=== PATIENT | female | born 1930 | race Caucasian/White ===

== ENCOUNTER 2017-08-23 07:24 | Emergency (ER) | payer MEDICARE, OTHER ==
[2017-08-23 08:05] LABS: BASO % 0 % (0-3); EOS # 0.1 x10^3/uL (0.0-0.7); EOS % 1 % (0-3); HEMATOCRIT 26.7 % (36.0-47.0); HEMOGLOBIN 8.7 g/dL (12.0-15.5); LYMPH # 0.3 x10^3/uL (1.0-4.8); LYMPH % 2 % (24-48); MEAN CORPUSCULAR HEMOGLOBIN 32 pg (25-35); MEAN CORPUSCULAR HGB CONC 33 g/dL (31-37); MEAN CORPUSCULAR VOLUME 99 fL (79-100); MONO # 0.4 x10^3/uL (0.0-1.1); MONO % 3 % (0-9); NEUT # 11.1 x10^3uL (1.8-7.7); NEUT % 93 % (31-73); PLATELET COUNT 300 x10^3/uL (140-400); RED BLOOD COUNT 2.69 x10^6/uL (3.50-5.40); RED CELL DISTRIBUTION WIDTH 16.5 % (11.5-14.5); WHITE BLOOD COUNT 11.9 x10^3/uL (4.0-11.0)
[2017-08-23 08:16] LABS: ANION GAP 7 (6-14); BLOOD UREA NITROGEN 15 mg/dL (7-20); BUN/CREATININE RATIO 17 (6-20); CALCIUM 8.5 mg/dL (8.5-10.1); CARBON DIOXIDE 30 mmol/L (21-32); CHLORIDE 98 mmol/L (98-107); CREATININE 0.9 mg/dL (0.6-1.0); GFR 59.4; GLUCOSE 101 mg/dL (70-99); POTASSIUM 4.6 mmol/L (3.5-5.1); SODIUM 135 mmol/L (136-145)
[2017-08-23] MEDS: methylPREDNISolone SOD SUCC PF 125 MG/2 ML VIAL. IV (08:16)
[2017-08-23] MEDS: fentaNYL PF VIAL 100 MCG/2 ML VIAL IV (08:16)
[2017-08-23 08:18] LABS: INR 0.9 (0.8-1.1)
[2017-08-23 08:22] LABS: ALBUMIN 2.8 g/dL (3.4-5.0); ALBUMIN/GLOBULIN RATIO 0.9 (1.0-1.7); ALK PHOS 94 U/L (46-116); ALT (SGPT) 34 U/L (14-59); AST (SGOT) 19 U/L (15-37); MAGNESIUM 1.9 mg/dL (1.8-2.4); TOTAL BILIRUBIN 0.4 mg/dL (0.2-1.0); TOTAL PROTEIN 5.8 g/dL (6.4-8.2)
[2017-08-23 08:23] LABS: TROPONINI < 0.017 ng/mL (0.000-0.055)
[2017-08-23 08:23] LABS: ADD MAN DIFF? YES
[2017-08-23 08:24] LABS: LACTIC ACID 1.1 mmol/L (0.4-2.0)
[2017-08-23 08:28] LABS: NT-PRO BNP 697 pg/mL (0-449)
[2017-08-23] MEDS: IPRATRPIUM/ALBUTEROL 0.5/2.5MG 3 ML NEBU. NEB (08:42)
[2017-08-23 10:48] LABS: % BANDS 11 % (0-9); % EOS 1 % (0-5); % LYMPHS 3 % (24-48); % SEGS 85 % (35-66); PLT ESTIMATE ADEQUATE (ADEQUATE)
[2017-08-23 10:49] LABS: ANISOCYTOSIS SLIGHT; SCHISTOCYTES OCC; TOXIC GRANULATION PRESENT
== END 2017-08-23 10:27 | disposition home or self-care (01) ==
LOC: ER 07:24
DX: R05 Cough (principal); R09.81 Nasal congestion; R06.02 Shortness of breath; J44.9 Chronic obstructive pulmonary disease, unspecified; M19.90 Unspecified osteoarthritis, unspecified site; E78.5 Hyperlipidemia, unspecified; E03.9 Hypothyroidism, unspecified; I10 Essential (primary) hypertension; Z95.5 Presence of coronary angioplasty implant and graft; Z99.81 Dependence on supplemental oxygen; I25.10 Atherosclerotic heart disease of native coronary artery without angina pectoris; F17.200 Nicotine dependence, unspecified, uncomplicated
CPT/HCPCS: 36415; 71045; 80053; 83605; 83735; 83880; 84484; 85007; 85025; 85610; 87040; 93005; 93923; 94640; 96374; 96375; 99285-25; J2930; J3010; J7620

== ENCOUNTER → 2017-09-02 | Outpatient (CLI) | payer MEDICARE, OTHER ==
[2017-09-02] MEDS: IOHEXOL 300 MG/ML 100ML VIAL. IV (14:15)
== END | disposition home or self-care (01) ==
LOC: CT 14:39
DX: I70.0 Atherosclerosis of aorta (principal); I11.0 Hypertensive heart disease with heart failure; I50.9 Heart failure, unspecified; E78.5 Hyperlipidemia, unspecified; E03.9 Hypothyroidism, unspecified; Z87.891 Personal history of nicotine dependence
CPT/HCPCS: 75635; Q9967

== ENCOUNTER 2017-10-15 15:28 | Emergency (ER) | payer MEDICARE, OTHER ==
[2017-10-15 16:49] LABS: BILIRUBIN,URINE NEGATIVE (NEG); CLARITY,URINE CLOUDY; COLOR,URINE YELLOW; GLUCOSE,URINE NEGATIVE (NEG); NITRITE,URINE POSITIVE (NEG); PH,URINE 5.5; PROTEIN,URINE NEGATIVE (NEG-TRACE); UROBILINOGEN,URINE 0.2 mg/dL (0.2 mg/dL)
[2017-10-15 17:04] LABS: ADD MAN DIFF? NO
[2017-10-15 17:07] LABS: BASO # 0.1 x10^3/uL (0.0-0.2); BASO % 1 % (0-3); EOS # 0.6 x10^3/uL (0.0-0.7); EOS % 8 % (0-3); HEMOGLOBIN 9.1 g/dL (12.0-15.5); LYMPH # 1.8 x10^3/uL (1.0-4.8); LYMPH % 23 % (24-48); MEAN CORPUSCULAR HEMOGLOBIN 32 pg (25-35); MEAN CORPUSCULAR HGB CONC 34 g/dL (31-37); MEAN CORPUSCULAR VOLUME 95 fL (79-100); MONO # 0.9 x10^3/uL (0.0-1.1); MONO % 11 % (0-9); NEUT # 4.5 x10^3uL (1.8-7.7); NEUT % 57 % (31-73); PLATELET COUNT 268 x10^3/uL (140-400); RED BLOOD COUNT 2.85 x10^6/uL (3.50-5.40); RED CELL DISTRIBUTION WIDTH 18.1 % (11.5-14.5); WHITE BLOOD COUNT 7.8 x10^3/uL (4.0-11.0)
[2017-10-15 17:11] LABS: BACTERIA,URINE MODERATE /HPF (0-FEW); SQUAMOUS EPITHELIAL CELL,UR OCC /LPF; WBC,URINE TNTC /HPF (0-4)
[2017-10-15 17:35] LABS: LACTIC ACID 1.1 mmol/L (0.4-2.0); TROPONINI < 0.017 ng/mL (0.000-0.055)
[2017-10-15 17:43] LABS: ALBUMIN 2.8 g/dL (3.4-5.0); ALBUMIN/GLOBULIN RATIO 0.7 (1.0-1.7); ALK PHOS 89 U/L (46-116); ALT (SGPT) 18 U/L (14-59); ANION GAP 2 (6-14); AST (SGOT) 20 U/L (15-37); BLOOD UREA NITROGEN 19 mg/dL (7-20); BUN/CREATININE RATIO 21 (6-20); CALCIUM 8.5 mg/dL (8.5-10.1); CARBON DIOXIDE 28 mmol/L (21-32); CHLORIDE 104 mmol/L (98-107); CREATININE 0.9 mg/dL (0.6-1.0); GFR 59.4; LIPASE 186 U/L (73-393); POTASSIUM 4.5 mmol/L (3.5-5.1); SODIUM 134 mmol/L (136-145); TOTAL BILIRUBIN 0.2 mg/dL (0.2-1.0); TOTAL PROTEIN 6.8 g/dL (6.4-8.2)
[2017-10-15] MEDS ORDERED: CONTRAST GIVEN. MC (17:45)
[2017-10-15] MEDS: IOHEXOL 300 MG/ML 100ML VIAL. IV (17:45)
[2017-10-15 17:47] LABS: GLUCOSE 105 mg/dL (70-99)
[2017-10-15] MEDS: CIPROFLOXACIN 400MG PREMIX 200 ML IV (19:04)
== END 2017-10-15 20:10 | disposition home or self-care (01) ==
LOC: ER 15:28
DX: N39.0 Urinary tract infection, site not specified (principal); R22.2 Localized swelling, mass and lump, trunk; E03.9 Hypothyroidism, unspecified; E78.5 Hyperlipidemia, unspecified; I25.10 Atherosclerotic heart disease of native coronary artery without angina pectoris; J44.9 Chronic obstructive pulmonary disease, unspecified; I10 Essential (primary) hypertension; M19.90 Unspecified osteoarthritis, unspecified site; Z95.5 Presence of coronary angioplasty implant and graft; Z87.891 Personal history of nicotine dependence; Z90.49 Acquired absence of other specified parts of digestive tract; Z90.710 Acquired absence of both cervix and uterus
CPT/HCPCS: 36415; 74177; 80053; 81001; 83605; 83690; 84484; 85025; 87086; 87186; 93005; 93926; 96365; 99285-25; J0744; Q9967

== ENCOUNTER → 2017-11-04 | Outpatient (CLI) | payer MEDICARE, OTHER ==
[~2017-11-04] MED LIST: CONTRAST GIVEN. MC
[2017-11-04] MEDS: IOHEXOL 300 MG/ML 100ML VIAL. IV (08:38)
== END | disposition home or self-care (01) ==
LOC: CT 07:45
DX: I70.221 Atherosclerosis of native arteries of extremities with rest pain, right leg (principal); E55.9 Vitamin D deficiency, unspecified; I11.0 Hypertensive heart disease with heart failure; I50.9 Heart failure, unspecified; E78.5 Hyperlipidemia, unspecified; E03.9 Hypothyroidism, unspecified; J44.9 Chronic obstructive pulmonary disease, unspecified
CPT/HCPCS: 75635; Q9967

== ENCOUNTER 2017-12-24 05:59 | Inpatient (IN) | payer MEDICARE, OTHER ==
[~2017-12-24 05:59] MED LIST changes: -CONTRAST GIVEN. MC; +LIDOCAINE 1% PF 30 ML VIAL.; +SURGICEL FIBRILLAR 1X2 EACH.
[2017-12-24] MEDS: IV RINGERS,LACTATED 1000ML 1,000 ML IV (07:00)
[2017-12-24] MEDS ORDERED: ONDANSETRON PF 4 MG/2 ML VIAL. IV (07:00)
[2017-12-24] MEDS ORDERED: PROCHLORPERAZINE 10 MG/2 ML VIAL. IV (07:00)
[2017-12-24] MEDS ORDERED: fentaNYL PF VIAL 100 MCG/2 ML VIAL IV (07:00)
[2017-12-24] MEDS ORDERED: LIDOCAINE 1% PF 2 ML VIAL. ID (07:00)
[2017-12-24] MEDS ORDERED: ETOMIDATE 20 MG/10 ML VIAL. IV (07:01)
[2017-12-24] MEDS ORDERED: LIDOCAINE 2% PF Vial for OR 5 ML VIAL. (07:01)
[2017-12-24] MEDS ORDERED: ONDANSETRON PF 4 MG/2 ML VIAL. (07:01)
[2017-12-24] MEDS ORDERED: PHENYLEPHRINE in 0.9% NACL PF 1 MG/10 ML SYRINGE. IV (07:01)
[2017-12-24] MEDS ORDERED: DEXAMETHASONE SOD PHOS 20 MG/5 ML VIAL. (07:01)
[2017-12-24] MEDS ORDERED: fentaNYL PF VIAL 100 MCG/2 ML VIAL (07:01)
[2017-12-24 07:06] LABS: ADD MAN DIFF? NO
[2017-12-24 07:13] LABS: BASO # 0.1 x10^3/uL (0.0-0.2); BASO % 1 % (0-3); EOS # 0.4 x10^3/uL (0.0-0.7); EOS % 3 % (0-3); HEMATOCRIT 28.9 % (36.0-47.0); HEMOGLOBIN 9.8 g/dL (12.0-15.5); LYMPH # 1.5 x10^3/uL (1.0-4.8); LYMPH % 12 % (24-48); MEAN CORPUSCULAR HEMOGLOBIN 32 pg (25-35); MEAN CORPUSCULAR HGB CONC 34 g/dL (31-37); MEAN CORPUSCULAR VOLUME 95 fL (79-100); MONO # 0.9 x10^3/uL (0.0-1.1); MONO % 8 % (0-9); NEUT # 9.3 x10^3uL (1.8-7.7); NEUT % 77 % (31-73); PLATELET COUNT 230 x10^3/uL (140-400); RED BLOOD COUNT 3.06 x10^6/uL (3.50-5.40); RED CELL DISTRIBUTION WIDTH 15.7 % (11.5-14.5); WHITE BLOOD COUNT 12.1 x10^3/uL (4.0-11.0)
[2017-12-24 07:15] LABS: ANION GAP 8 (6-14); BLOOD UREA NITROGEN 22 mg/dL (7-20); CARBON DIOXIDE 24 mmol/L (21-32); CHLORIDE 106 mmol/L (98-107); CREATININE 0.9 mg/dL (0.6-1.0); GFR 59.4; GLUCOSE 94 mg/dL (70-99); POTASSIUM 5.1 mmol/L (3.5-5.1); SODIUM 138 mmol/L (136-145)
[2017-12-24] MEDS ORDERED: SUCCINYLCHOLINE 200 MG/10 ML VIAL. (07:15)
[2017-12-24 07:24] LABS: PARTIAL THROMBOPLASTIN TIME 26 SEC (24-38); PROTHROMBIN TIME PATIENT 12.5 SEC (11.7-14.0)
[2017-12-24] MEDS ORDERED: ePHEDrine PF IN SALINE 50 MG/5 ML DISP.SYRIN IV (07:59)
[2017-12-24] MEDS ORDERED: ceFAZolin 2GM PREMIX 2 GM/50 ML BAG IV (08:00)
[2017-12-24] MEDS ORDERED: ESMOLOL 100 MG/10 ML VIAL. IV (08:24)
[2017-12-24] MEDS: fentaNYL PF VIAL 100 MCG/2 ML VIAL IV ×4 (09:02→09:22)
[2017-12-24] MEDS ORDERED: MAG HYDROX/ALUMINUM HYD/SIMETH 30 ML ORAL.SUSP PO (09:15)
[2017-12-24] MEDS ORDERED: NALOXONE 0.4 MG/ML VIAL. IV (09:15)
[2017-12-24] MEDS ORDERED: CALCIUM CARBONATE 500 MG TAB.CHEW PO (09:15)
[2017-12-24] MEDS: MORPHINE SULFATE 2 MG/ML DISP.SYRIN. IV ×3 (09:38→10:56)
[2017-12-24] MEDS ORDERED: NITROGLYCERIN SUBLINGUAL 0.4 MG BOTTLE OF 25. SL (11:45)
[2017-12-24] MEDS ORDERED: IPRATRPIUM/ALBUTEROL 0.5/2.5MG 3 ML NEBU. NEB (11:45)
[2017-12-24] MEDS: IPRATRPIUM/ALBUTEROL 0.5/2.5MG 3 ML NEBU. NEB ×3 (11:50→20:00)
[2017-12-24] MEDS ORDERED: ALBUTEROL SULFATE 2.5 MG/3 ML NEBU. NEB (12:00)
[2017-12-24] MEDS: DOCUSATE SODIUM 100 MG CAPSULE. PO (17:15)
[2017-12-24] MEDS: oxyCODONE/APAP 5/325 1 TAB TABLET PO (17:17)
[2017-12-24] MEDS: BUDESONIDE 0.5 MG/2 ML NEBU. NEB (20:00)
[2017-12-24] MEDS: ALPRAZolam 0.25 MG TABLET PO (20:07)
[2017-12-24] MEDS: MONTELUKAST SODIUM 10 MG TABLET. PO (20:07)
[2017-12-24] MEDS: ATORVASTATIN CALCIUM 20 MG TABLET PO (20:07)
[2017-12-24] MEDS: HYDROcodone/APAP 5/325MG 1 TAB TABLET PO (21:11)
[2017-12-25] MEDS: oxyCODONE/APAP 5/325 1 TAB TABLET PO ×3 (01:16→17:49)
[2017-12-25] MEDS: LEVOTHYROXINE 88 MCG TABLET PO (06:06)
[2017-12-25] MEDS: HYDROcodone/APAP 5/325MG 1 TAB TABLET PO (06:07)
[2017-12-25 07:32] LABS: ADD MAN DIFF? NO
[2017-12-25 07:35] LABS: BASO # 0.1 x10^3/uL (0.0-0.2); BASO % 1 % (0-3); EOS # 0.3 x10^3/uL (0.0-0.7); EOS % 4 % (0-3); HEMATOCRIT 25.6 % (36.0-47.0); HEMOGLOBIN 8.8 g/dL (12.0-15.5); LYMPH # 1.3 x10^3/uL (1.0-4.8); LYMPH % 17 % (24-48); MEAN CORPUSCULAR HEMOGLOBIN 33 pg (25-35); MEAN CORPUSCULAR HGB CONC 34 g/dL (31-37); MEAN CORPUSCULAR VOLUME 95 fL (79-100); MONO # 0.5 x10^3/uL (0.0-1.1); MONO % 6 % (0-9); NEUT # 5.8 x10^3uL (1.8-7.7); NEUT % 72 % (31-73); PLATELET COUNT 207 x10^3/uL (140-400); RED CELL DISTRIBUTION WIDTH 15.6 % (11.5-14.5)
[2017-12-25 07:46] LABS: ANION GAP 4 (6-14); BLOOD UREA NITROGEN 15 mg/dL (7-20); CALCIUM 8.8 mg/dL (8.5-10.1); CARBON DIOXIDE 29 mmol/L (21-32); CHLORIDE 105 mmol/L (98-107); CREATININE 0.9 mg/dL (0.6-1.0); GFR 59.4; GLUCOSE 94 mg/dL (70-99); MAGNESIUM 1.9 mg/dL (1.8-2.4); PHOSPHORUS 4.2 mg/dL (2.6-4.7); SODIUM 138 mmol/L (136-145)
[2017-12-25] MEDS: IPRATRPIUM/ALBUTEROL 0.5/2.5MG 3 ML NEBU. NEB ×4 (07:57→20:06)
[2017-12-25] MEDS: BUDESONIDE 0.5 MG/2 ML NEBU. NEB ×2 (07:57→20:06)
[2017-12-25] MEDS ORDERED: CLOPIDOGREL BISULFATE 75 MG TABLET PO (08:00)
[2017-12-25] MEDS: DOCUSATE SODIUM 100 MG CAPSULE. PO ×2 (09:00→20:39)
[2017-12-25] MEDS ORDERED: ASPIRIN 325 MG TABLET PO (09:00)
[2017-12-25] MEDS: amLODIPine BESYLATE 5 MG TABLET PO (09:00)
[2017-12-25] MEDS: FOLIC ACID 1 MG TABLET. PO (09:05)
[2017-12-25] MEDS: PANTOPRAZOLE 40 MG TABLET.DR. PO (09:05)
[2017-12-25] MEDS: ASPIRIN ENTERIC COATED 325 MG TABLET.DR. PO (09:05)
[2017-12-25] MEDS: CLOPIDOGREL BISULFATE 75 MG TABLET PO (09:05)
[2017-12-25] MEDS: SERTRALINE 25 MG TABLET. PO (09:06)
[2017-12-25] MEDS: ALPRAZolam 0.25 MG TABLET PO ×2 (09:06→20:39)
[2017-12-25] MEDS: LISINOPRIL 5 MG TABLET. PO (09:07)
[2017-12-25] MEDS: FUROSEMIDE 40 MG TABLET. PO (12:13)
[2017-12-25] MEDS: MORPHINE SULFATE 2 MG/ML DISP.SYRIN. IV (12:13)
[2017-12-25] MEDS: POTASSIUM CHLORIDE 20 MEQ TABLET.ER. PO (12:14)
[2017-12-25] MEDS ORDERED: FUROSEMIDE 20 MG TABLET PO (16:00)
[2017-12-25] MEDS: ATORVASTATIN CALCIUM 20 MG TABLET PO (20:39)
[2017-12-25] MEDS: MONTELUKAST SODIUM 10 MG TABLET. PO (20:40)
[2017-12-26] MEDS: LEVOTHYROXINE 88 MCG TABLET PO (06:28)
[2017-12-26] MEDS: IPRATRPIUM/ALBUTEROL 0.5/2.5MG 3 ML NEBU. NEB ×4 (07:20→21:16)
[2017-12-26] MEDS: BUDESONIDE 0.5 MG/2 ML NEBU. NEB ×2 (07:20→21:14)
[2017-12-26] MEDS: DOCUSATE SODIUM 100 MG CAPSULE. PO ×2 (09:00→20:44)
[2017-12-26] MEDS: MORPHINE SULFATE 2 MG/ML DISP.SYRIN. IV (09:09)
[2017-12-26] MEDS: ASPIRIN ENTERIC COATED 325 MG TABLET.DR. PO (09:49)
[2017-12-26] MEDS: LISINOPRIL 5 MG TABLET. PO (09:49)
[2017-12-26] MEDS: PANTOPRAZOLE 40 MG TABLET.DR. PO (09:49)
[2017-12-26] MEDS: FOLIC ACID 1 MG TABLET. PO (09:49)
[2017-12-26] MEDS: FUROSEMIDE 40 MG TABLET. PO (09:50)
[2017-12-26] MEDS: CLOPIDOGREL BISULFATE 75 MG TABLET PO (09:50)
[2017-12-26] MEDS: amLODIPine BESYLATE 5 MG TABLET PO (09:50)
[2017-12-26] MEDS: SERTRALINE 25 MG TABLET. PO (09:51)
[2017-12-26] MEDS: oxyCODONE/APAP 5/325 1 TAB TABLET PO ×3 (09:51→20:44)
[2017-12-26] MEDS: POTASSIUM CHLORIDE 20 MEQ TABLET.ER. PO (09:52)
[2017-12-26 13:34] LABS: ADD MAN DIFF? NO
[2017-12-26 13:36] LABS: BASO % 1 % (0-3); EOS # 0.6 x10^3/uL (0.0-0.7); EOS % 7 % (0-3); HEMATOCRIT 27.2 % (36.0-47.0); HEMOGLOBIN 9.2 g/dL (12.0-15.5); LYMPH # 1.3 x10^3/uL (1.0-4.8); LYMPH % 16 % (24-48); MEAN CORPUSCULAR HEMOGLOBIN 32 pg (25-35); MEAN CORPUSCULAR HGB CONC 34 g/dL (31-37); MEAN CORPUSCULAR VOLUME 94 fL (79-100); MONO # 0.5 x10^3/uL (0.0-1.1); MONO % 6 % (0-9); NEUT % 71 % (31-73); PLATELET COUNT 240 x10^3/uL (140-400); RED BLOOD COUNT 2.91 x10^6/uL (3.50-5.40); RED CELL DISTRIBUTION WIDTH 15.5 % (11.5-14.5); WHITE BLOOD COUNT 8.4 x10^3/uL (4.0-11.0)
[2017-12-26 13:50] LABS: ANION GAP 5 (6-14); BLOOD UREA NITROGEN 16 mg/dL (7-20); CALCIUM 8.8 mg/dL (8.5-10.1); CARBON DIOXIDE 30 mmol/L (21-32); CHLORIDE 103 mmol/L (98-107); CREATININE 0.9 mg/dL (0.6-1.0); GFR 59.4; GLUCOSE 112 mg/dL (70-99); POTASSIUM 4.2 mmol/L (3.5-5.1); SODIUM 138 mmol/L (136-145)
[2017-12-26] MEDS: ATORVASTATIN CALCIUM 20 MG TABLET PO (20:44)
[2017-12-26] MEDS: MONTELUKAST SODIUM 10 MG TABLET. PO (20:44)
[2017-12-26] MEDS: ALPRAZolam 0.25 MG TABLET PO (20:44)
[2017-12-27] MEDS: LEVOTHYROXINE 88 MCG TABLET PO (06:17)
[2017-12-27] MEDS: IPRATRPIUM/ALBUTEROL 0.5/2.5MG 3 ML NEBU. NEB ×2 (07:17→11:39)
[2017-12-27] MEDS: BUDESONIDE 0.5 MG/2 ML NEBU. NEB (07:17)
[2017-12-27] MEDS: PANTOPRAZOLE 40 MG TABLET.DR. PO (07:25)
[2017-12-27] MEDS: FUROSEMIDE 40 MG TABLET. PO (08:59)
[2017-12-27] MEDS: SERTRALINE 25 MG TABLET. PO (08:59)
[2017-12-27] MEDS: LISINOPRIL 5 MG TABLET. PO (08:59)
[2017-12-27] MEDS: ALPRAZolam 0.25 MG TABLET PO (08:59)
[2017-12-27] MEDS: FOLIC ACID 1 MG TABLET. PO (08:59)
[2017-12-27] MEDS: POTASSIUM CHLORIDE 20 MEQ TABLET.ER. PO (09:00)
[2017-12-27] MEDS: CLOPIDOGREL BISULFATE 75 MG TABLET PO (09:00)
[2017-12-27] MEDS: amLODIPine BESYLATE 5 MG TABLET PO (09:00)
[2017-12-27] MEDS: ASPIRIN ENTERIC COATED 325 MG TABLET.DR. PO (09:00)
[2017-12-27] MEDS: DOCUSATE SODIUM 100 MG CAPSULE. PO (09:00)
[2017-12-27] MEDS: oxyCODONE/APAP 5/325 1 TAB TABLET PO (09:01)
[2017-12-27] MEDS: HYDROcodone/APAP 5/325MG 1 TAB TABLET PO (12:54)
== END 2017-12-27 13:39 | disposition home health service (06) | DRG 901 ==
LOC: SURG 05:59 → 2 NORTH 10:22
PROC: 0JBL0ZZ Excision of Right Upper Leg Subcutaneous Tissue and Fascia, Open Approach (ICD-10-PCS; principal; 2017-12-24 07:30)
DX: L76.34 Postprocedural seroma of skin and subcutaneous tissue following other procedure (principal); I50.33 Acute on chronic diastolic (congestive) heart failure; E43 Unspecified severe protein-calorie malnutrition; J96.11 Chronic respiratory failure with hypoxia; I11.0 Hypertensive heart disease with heart failure; K21.9 Gastro-esophageal reflux disease without esophagitis; J44.9 Chronic obstructive pulmonary disease, unspecified; F41.9 Anxiety disorder, unspecified; M19.90 Unspecified osteoarthritis, unspecified site; I25.10 Atherosclerotic heart disease of native coronary artery without angina pectoris; E03.9 Hypothyroidism, unspecified; E87.6 Hypokalemia; I70.201 Unspecified atherosclerosis of native arteries of extremities, right leg; Z90.710 Acquired absence of both cervix and uterus; Z98.49 Cataract extraction status, unspecified eye; Z80.9 Family history of malignant neoplasm, unspecified; Z85.038 Personal history of other malignant neoplasm of large intestine; Z95.5 Presence of coronary angioplasty implant and graft; Z68.22 Body mass index [BMI] 22.0-22.9, adult
CPT/HCPCS: 36415; 80048; 83735; 84100; 85025; 85610; 85730; 87071; 87075; 88304; 94640; 94760; 97116-GP; 97161-GP; 97166-GO; 97530-GO; 97535-GO; A7015; J0330; J0690; J1100; J2001; J2270; J2370; J2405; J3010; J3490; J7040; J7120; J7620; J7626

== ENCOUNTER → 2018-01-15 | Outpatient (CLI) | payer MEDICARE, OTHER ==
[2017-12-27 11:15] VITALS: BP 108/41
[~2018-01-15] MED LIST changes: +ACET500L17 PO; +ALBU0.635 IH; +ALBU2.5V5 NEB; +ALPR0.25 PO; +AMLO5TAB7 PO; +AMOX1TAB11 PO; +ASPI325T8 PO; +ATOR10TA60 PO; +BENZ-8 PO; +CALC-79 PO; +CALC500T30 PO; +CIPR500T94 PO; +CLOP75TA PO; +DOCU100C28 PO; +ENSURE; +FOLI1TAB16 PO; +FURO-69 PO; +HYDR-2758 PO; +HYDR1TAB20 PO; +LACT1CAP19 PO; +LEVO500T8 PO; +LEVO75TA5 PO; +LEVO88TA4 PO; -LIDOCAINE 1% PF 30 ML VIAL.; +LISI-338 PO; +METH2.5T PO; +MONT10TA9 PO; +MULT-245 PO; +MULT1TAB45 PO; +NAPR-634 PO; +NAPR220C4 PO; +NITR0.4T SL; +PRED-220 PO; +PRED20TA PO; +Pantoprazole PO; +SERT25TA PO; +SERT25TA4 PO; -SURGICEL FIBRILLAR 1X2 EACH.
== END | disposition home or self-care (01) ==
LOC: PMGWOUND 08:52
PROVIDERS: ATTEND Preventive Medicine Undersea and Hyperbaric Medicine
DX: T81.31XA Disruption of external operation (surgical) wound, not elsewhere classified, initial encounter (principal); I11.0 Hypertensive heart disease with heart failure; I50.33 Acute on chronic diastolic (congestive) heart failure; K21.9 Gastro-esophageal reflux disease without esophagitis; F41.9 Anxiety disorder, unspecified; J44.9 Chronic obstructive pulmonary disease, unspecified; E03.9 Hypothyroidism, unspecified; I25.10 Atherosclerotic heart disease of native coronary artery without angina pectoris; Z90.710 Acquired absence of both cervix and uterus; Z95.5 Presence of coronary angioplasty implant and graft; Z85.828 Personal history of other malignant neoplasm of skin; Z87.891 Personal history of nicotine dependence; Y83.8 Other surgical procedures as the cause of abnormal reaction of the patient, or of later complication, without mention of misadventure at the time of the procedure; Y92.89 Other specified places as the place of occurrence of the external cause
CPT/HCPCS: 97605

== ENCOUNTER → 2018-02-07 | Outpatient (CLI) | payer MEDICARE, OTHER ==
[2017-12-27 11:15] VITALS: BP 108/41
== END | disposition home or self-care (01) ==
LOC: PMGWOUND 10:20
PROVIDERS: ATTEND Preventive Medicine Undersea and Hyperbaric Medicine
DX: T81.89XD Other complications of procedures, not elsewhere classified, subsequent encounter (principal); I11.0 Hypertensive heart disease with heart failure; I50.33 Acute on chronic diastolic (congestive) heart failure; J44.9 Chronic obstructive pulmonary disease, unspecified; E03.9 Hypothyroidism, unspecified; F41.9 Anxiety disorder, unspecified; I25.10 Atherosclerotic heart disease of native coronary artery without angina pectoris; K21.9 Gastro-esophageal reflux disease without esophagitis; M19.90 Unspecified osteoarthritis, unspecified site; E66.9 Obesity, unspecified; Z68.1 Body mass index [BMI] 19.9 or less, adult; Z90.710 Acquired absence of both cervix and uterus; Z87.891 Personal history of nicotine dependence; Z85.038 Personal history of other malignant neoplasm of large intestine; Z85.828 Personal history of other malignant neoplasm of skin; Y83.8 Other surgical procedures as the cause of abnormal reaction of the patient, or of later complication, without mention of misadventure at the time of the procedure
CPT/HCPCS: 97597

== ENCOUNTER → 2018-02-14 | Outpatient (CLI) | payer MEDICARE, OTHER ==
[2017-12-27 11:15] VITALS: BP 108/41
== END | disposition home or self-care (01) ==
LOC: PMGWOUND 09:52
PROVIDERS: ATTEND Preventive Medicine Undersea and Hyperbaric Medicine
DX: T81.89XD Other complications of procedures, not elsewhere classified, subsequent encounter (principal); I11.0 Hypertensive heart disease with heart failure; I50.33 Acute on chronic diastolic (congestive) heart failure; J44.9 Chronic obstructive pulmonary disease, unspecified; F41.9 Anxiety disorder, unspecified; E03.9 Hypothyroidism, unspecified; I25.10 Atherosclerotic heart disease of native coronary artery without angina pectoris; K21.9 Gastro-esophageal reflux disease without esophagitis; M19.90 Unspecified osteoarthritis, unspecified site; E66.9 Obesity, unspecified; Z68.1 Body mass index [BMI] 19.9 or less, adult; Z90.710 Acquired absence of both cervix and uterus; Z87.891 Personal history of nicotine dependence; Z85.038 Personal history of other malignant neoplasm of large intestine; Z85.828 Personal history of other malignant neoplasm of skin; Y83.8 Other surgical procedures as the cause of abnormal reaction of the patient, or of later complication, without mention of misadventure at the time of the procedure
CPT/HCPCS: 17250

== ENCOUNTER → 2018-02-21 | Outpatient (CLI) | payer MEDICARE, OTHER ==
[2017-12-27 11:15] VITALS: BP 108/41
== END | disposition home or self-care (01) ==
LOC: PMGWOUND 10:31
PROVIDERS: ATTEND Preventive Medicine Undersea and Hyperbaric Medicine
DX: T81.89XD Other complications of procedures, not elsewhere classified, subsequent encounter (principal); I11.0 Hypertensive heart disease with heart failure; I50.33 Acute on chronic diastolic (congestive) heart failure; J44.9 Chronic obstructive pulmonary disease, unspecified; F41.9 Anxiety disorder, unspecified; E03.9 Hypothyroidism, unspecified; I25.10 Atherosclerotic heart disease of native coronary artery without angina pectoris; K21.9 Gastro-esophageal reflux disease without esophagitis; M19.90 Unspecified osteoarthritis, unspecified site; E66.9 Obesity, unspecified; Z68.1 Body mass index [BMI] 19.9 or less, adult; Z90.710 Acquired absence of both cervix and uterus; Z95.5 Presence of coronary angioplasty implant and graft; Z87.891 Personal history of nicotine dependence; Z85.038 Personal history of other malignant neoplasm of large intestine; Z85.828 Personal history of other malignant neoplasm of skin; Y83.8 Other surgical procedures as the cause of abnormal reaction of the patient, or of later complication, without mention of misadventure at the time of the procedure
CPT/HCPCS: 99214; G0463

== ENCOUNTER → 2018-02-27 | Outpatient (CLI) | payer MEDICARE, OTHER ==
[2017-12-27 11:15] VITALS: BP 108/41
--- NOTE | 2018-03-03 08:38 | RAD ---
MR#: [id number] Date of Study: 02/27/2018 Ordering Physician: KEN WILKS, Referring Physician: KEN WILKS Tech: Clare Nogueira RDMS RVT APPROVED REPORT Patient Location : OUT-PATIENT Indications Bilateral Leg Edema Findings Grayscale images the bilateral saphenofemoral junctions, proximal greater saphenous veins and lesser saphenous veins does not reveal any obvious evidence of thrombus or reflux. Critical Notification Critical Value: No <Conclusion> Negative for reflux in the bilateral greater and lesser saphenous veins. Signed by : Frank Corona, Electronically Approved : 03/03/2018 08:38:02
== END | disposition home or self-care (01) ==
LOC: US 12:43
PROVIDERS: ATTEND Internal Medicine Cardiovascular Disease
DX: R60.0 Localized edema (principal)
CPT/HCPCS: 93970

== ENCOUNTER → 2018-03-07 | Outpatient (CLI) | payer MEDICARE, OTHER ==
[2017-12-27 11:15] VITALS: BP 108/41
== END | disposition home or self-care (01) ==
LOC: PMGWOUND 10:29
PROVIDERS: ATTEND Preventive Medicine Undersea and Hyperbaric Medicine
DX: T81.89XD Other complications of procedures, not elsewhere classified, subsequent encounter (principal); I11.0 Hypertensive heart disease with heart failure; I50.33 Acute on chronic diastolic (congestive) heart failure; F41.9 Anxiety disorder, unspecified; J44.9 Chronic obstructive pulmonary disease, unspecified; E03.9 Hypothyroidism, unspecified; M19.90 Unspecified osteoarthritis, unspecified site; K21.9 Gastro-esophageal reflux disease without esophagitis; I25.10 Atherosclerotic heart disease of native coronary artery without angina pectoris; E66.9 Obesity, unspecified; Z68.1 Body mass index [BMI] 19.9 or less, adult; Z85.828 Personal history of other malignant neoplasm of skin; Z85.038 Personal history of other malignant neoplasm of large intestine; Z87.891 Personal history of nicotine dependence; Z90.710 Acquired absence of both cervix and uterus; Y83.8 Other surgical procedures as the cause of abnormal reaction of the patient, or of later complication, without mention of misadventure at the time of the procedure
CPT/HCPCS: 99213

== ENCOUNTER 2018-05-06 12:29 | Observation (INO) | payer MEDICARE, OTHER ==
[~2018-05-06] VITALS: Ht 157.5 cm; Wt 49.6 kg
[~2018-05-06 12:29] MED LIST changes: -HYDR-2758 PO; +HYDR-2761 PO
--- NOTE | 2018-05-06 13:04 | PHYS DOC ---
Past Medical History Past Medical History: Anxiety, Arthritis, Bronchitis, CAD, Cancer, COPD, Depression, Hypertension, Hypothyroid, UTI, Other Additional Past Medical Histor: osteoarthritis, hypoxemia, vit D deficiency, hyperlipidemia, emphysema Past Surgical History: Cancer Surgery, Cholecystectomy, Hysterectomy, Other Additional Past Surgical Histo: bladder tuck, hernia, coronary stents, pvd surgery, colon stents Alcohol Use: None Drug Use: None Adult General Chief Complaint Chief Complaint: OTHER COMPLAINTS HPI HPI Patient is a 87 year old female who presents with tachycardia. Patient was going about her ADLs in the bathroom today when she had sudden onset of feeling lightheaded. She felt dizzy. She checked her heart rate and it was documented to be 155 at home. She called her daughter to the room were also checked her heart rate and verified that it was fast. Patient came to the ER but her symptoms resolved prior to checking in. She denies chest pain. No diaphoresis. She is had no recent illness. No fever or chills. No orthopnea or dyspnea with exertion beyond normal. Patient normally lives in an apartment with some of her family members. She is ambulatory at baseline without assistance. During the interview, the patient has no symptoms. HR is 94 with sinus rhythm. Review of Systems Review of Systems Constitutional: Denies fever or chills Eyes: Denies change in visual acuity HENT: Denies nasal congestion Respiratory: Denies cough or shortness of breath Cardiovascular: No additional information not addressed in HPI GI: Denies abdominal pain, nausea : Denies dysuria Musculoskeletal: Denies back pain Integument: Denies rash or skin lesions Neurologic: Denies headache All other systems were reviewed and found to be within normal limits, except as documented in this note. Allergies Allergies Allergies Coded Allergies Type Severity Reaction Last Updated Verified No Known Drug Allergies 12/19/17 No Physical Exam Physical Exam Constitutional: Well developed, well nourished, no acute distress, non-toxic appearance HENT: Normocephalic, atraumatic, bilateral external ears normal, oropharynx moist Eyes: PERRLA, EOMI, conjunctiva normal Neck: Normal range of motion, no tenderness Cardiovascular:Heart rate regular rhythm, no murmur Lungs & Thorax: Bilateral breath sounds clear to auscultation Abdomen: Bowel sounds normal, soft, NTTP Skin: Warm, dry, no erythema Extremities: No edema Neurologic: Alert and oriented X 3 Psychologic: Affect normal Current Patient Data Vital Signs Vital Signs Date Time Temp Pulse Resp B/P (MAP) Pulse Ox O2 Delivery O2 Flow Rate FiO2 05/06/18 13:30 92 16 113/54 (73) 96 Room Air 05/06/18 12:32 98.3 98.3 Lab Values Laboratory Tests Test 05/06/18 13:17 05/06/18 13:36 White Blood Count 8.2 x10^3/uL (4.0-11.0) Red Blood Count 3.29 x10^6/uL (3.50-5.40) L Hemoglobin 10.9 g/dL (12.0-15.5) L Hematocrit 31.6 % (36.0-47.0) L Mean Corpuscular Volume 96 fL (79-100) Mean Corpuscular Hemoglobin 33 pg (25-35) Mean Corpuscular Hemoglobin Concent 35 g/dL (31-37) Red Cell Distribution Width 15.9 % (11.5-14.5) H Platelet Count 222 x10^3/uL (140-400) Neutrophils (%) (Auto) 76 % (31-73) H Lymphocytes (%) (Auto) 14 % (24-48) L Monocytes (%) (Auto) 7 % (0-9) Eosinophils (%) (Auto) 3 % (0-3) Basophils (%) (Auto) 1 % (0-3) Neutrophils # (Auto) 6.2 x10^3uL (1.8-7.7) Lymphocytes # (Auto) 1.1 x10^3/uL (1.0-4.8) Monocytes # (Auto) 0.6 x10^3/uL (0.0-1.1) Eosinophils # (Auto) 0.3 x10^3/uL (0.0-0.7) Basophils # (Auto) 0.1 x10^3/uL (0.0-0.2) Prothrombin Time 13.4 SEC (11.7-14.0) Prothrombin Time INR 1.1 (0.8-1.1) PTT 25 SEC (24-38) Sodium Level 140 mmol/L (136-145) Potassium Level 4.6 mmol/L (3.5-5.1) Chloride Level 105 mmol/L (98-107) Carbon Dioxide Level 26 mmol/L (21-32) Anion Gap 9 (6-14) Blood Urea Nitrogen 24 mg/dL (7-20) H Creatinine 1.2 mg/dL (0.6-1.0) H Estimated GFR (Cockcroft-Gault) 42.6 Glucose Level 117 mg/dL (70-99) H Calcium Level 8.8 mg/dL (8.5-10.1) Magnesium Level 2.0 mg/dL (1.8-2.4) Troponin I Quantitative < 0.017 ng/mL (0.000-0.055) XQ-Vwa-L-Type Natriuretic Peptide 750 pg/mL (0-449) H Thyroid Stimulating Hormone (TSH) 0.788 uIU/mL (0.358-3.74) Urine Collection Type Unknown Urine Color Yellow Urine Clarity Clear Urine pH 6.0 Urine Specific [place] 1.010 Urine Protein Negative mg/dL (NEG-TRACE) Urine Glucose (UA) Negative mg/dL (NEG) Urine Ketones (Stick) Negative mg/dL (NEG) Urine Blood Negative (NEG) Urine Nitrite Negative (NEG) Urine Bilirubin Negative (NEG) Urine Urobilinogen Dipstick 0.2 mg/dL (0.2 mg/dL) Urine Leukocyte Esterase Negative (NEG) Urine RBC 1-2 /HPF (0-2) Urine WBC Occ /HPF (0-4) Urine Squamous Epithelial Cells Few /LPF Urine Bacteria 0 /HPF (0-FEW) Urine Hyaline Casts Moderate /HPF Urine Mucus Slight /LPF Laboratory Tests 18 13:17 Laboratory Tests 18 13:17 EKG EKG No STEMI NSR with PAC's Interpretation Time: 12:35 Radiology/Procedures Radiology/Procedures [] Course & Med Decision Making Course & Med Decision Making Pertinent Labs and Imaging studies reviewed. (See chart for details) Patient is evaluated immediately on arrival to the emergency department. She has no complaints currently. Her EKG does not show any concerning signs for ischemia. She has a normal sinus rhythm with some PACs. Standard ACS work-up ordered Patient was evaluated for some episode of lightheadedness and dizziness which resolved prior to coming in the ER. She also perceive that she had a rapid heart rate with a rate of 155 at home. This was not observed during the ED course. I spoke to the patient's primary cardiology office and patient will be admitted for observation and telemetry monitoring. Troponin was not elevated. There are no other acute findings on her workup in the emergency room.. Dragon Disclaimer Dragon Disclaimer This electronic medical record was generated, in whole or in part, using a voice recognition dictation system. Departure Departure Disposition: 09 ADMITTED INPATIENT Admitting Physician: Zackary De Leon Condition: GOOD Referrals: LUIS ROSADO NP (PCP) MYRIAM WAYNE DO May 06, 2018 13:04
[2018-05-06 13:24] LABS: BASO # 0.1 x10^3/uL (0.0-0.2); BASO % 1 % (0-3); EOS # 0.3 x10^3/uL (0.0-0.7); EOS % 3 % (0-3); HEMATOCRIT 31.6 % (36.0-47.0); HEMOGLOBIN 10.9 g/dL (12.0-15.5); LYMPH # 1.1 x10^3/uL (1.0-4.8); LYMPH % 14 % (24-48); MEAN CORPUSCULAR HEMOGLOBIN 33 pg (25-35); MEAN CORPUSCULAR HGB CONC 35 g/dL (31-37); MEAN CORPUSCULAR VOLUME 96 fL (79-100); MONO # 0.6 x10^3/uL (0.0-1.1); MONO % 7 % (0-9); NEUT # 6.2 x10^3uL (1.8-7.7); NEUT % 76 % (31-73); PLATELET COUNT 222 x10^3/uL (140-400); RED BLOOD COUNT 3.29 x10^6/uL (3.50-5.40); RED CELL DISTRIBUTION WIDTH 15.9 % (11.5-14.5); WHITE BLOOD COUNT 8.2 x10^3/uL (4.0-11.0)
[2018-05-06 13:34] LABS: PROTHROMBIN TIME PATIENT 13.4 SEC (11.7-14.0)
--- NOTE | 2018-05-06 13:39 | EKG ---
[facility] [address] [place] [address] Test Date: 2018-05-06 Test Time: 12:34:57 Pat Name: EMRE MOISE Department: Room: Gender: F Glass Beveler: : 1930 Requested By: MYRIAM WAYNE Order Number: [id number] Reading MD: Estrada French Measurements Intervals [place] Rate: 93 P: 53 [place]: 148 QRS: -27 QRSD: 74 T: 66 QT: 368 QTc: 460 Interpretive Statements SINUS RHYTHM ATRIAL PREMATURE COMPLEX(ES) LEFTWARD AXIS LOW LIMB LEAD VOLTAGE NONSPECIFIC ST-T WAVE CHANGES. Electronically Signed On 05-07-2018 8:46:40 NUCLEAR CONTROL ROOM OPERATOR by Estrada French
[2018-05-06 13:40] LABS: CALCIUM 8.8 mg/dL (8.5-10.1); CREATININE 1.2 mg/dL (0.6-1.0); GFR 42.6; POTASSIUM 4.6 mmol/L (3.5-5.1)
--- NOTE | 2018-05-06 13:47 | PDOC1 ---
History and Physical Date of Admission Date of Admission DATE: 05/06/18 TIME: 13:46 Identification/Chief Complaint Chief Complaint seen in er 87 year old female who presents with tachycardia. Patient was going about her ADLs in the bathroom today when she had sudden onset of feeling lightheaded, felt dizzy. checked her heart rate and it was documented to be 155 at home., called her daughter to the room were also checked her heart rate and verified that it was fast. Patient came to the ER but her symptoms resolved prior to checking in. She denies chest pain. No diaphoresis. Past Medical History Cardiovascular: CAD, HTN Pulmonary: COPD CENTRAL NERVOUS SYSTEM: Other GI: GERD Heme/Onc: Cancer Hepatobiliary: No pertinent hx Psych: Anxiety Musculoskeletal: Osteoarthritis Infectious disease: No pertinent hx Renal/: No pertinent hx Endocrine: No pertinent hx, Hypothyroidism, Osteoporosis Past Surgical History Past Surgical History: Cholecystectomy, Cataract Removal, Hernia Repair, Hysterectomy, Colon Resection, Other Family History Family History: Cancer, High Cholestrol, Hypertension Social History Smoke: No ALCOHOL: none Drugs: None Current Medications Current Medications Active Scripts Active [Pantoprazole] 40 MG Tablet.dr 40 Mg PO DAILYAC 90 Days Montelukast Sodium Tablet (Montelukast Sodium) 10 Mg Tablet 10 Mg PO QHS 90 Days Amlodipine Besylate 5 Mg Tablet 5 Mg PO DAILY 90 Days Nitrostat (Nitroglycerin) 0.4 Mg Tab.subl 0.4 Mg SL PRN Q5MIN PRN 90 Days Atorvastatin Calcium 10 Mg Tablet 20 Mg PO QHS 90 Days Clopidogrel (Clopidogrel Bisulfate) 75 Mg Tablet 75 Mg PO DAILYWBKFT 90 Days Lisinopril 5 Mg Tablet 5 Mg PO DAILY 90 Days Reported Naproxen Sodium 220 Mg Tablet 220 Mg PO DAILY Docusate Sodium 100 Mg Capsule 100 Mg PO BID Albuterol Sulfate Neb Soln (Albuterol Sulfate) 2.5 Mg/3 Ml Vial.neb 1 Vial NEB PRN QID PRN Chewable-Yamilka (Multivitamin) 1 Each Tab.chew 1 Each PO Lasix (Furosemide) 20 Mg Tablet 10 Mg PO QMWF Aspirin 325 Mg Tablet 1 Tab PO DAILY [ensure] Xanax (Alprazolam) 0.25 Mg Tablet 0.25 Mg PO PRN Q12HR PRN Methotrexate (Methotrexate Sodium) 2.5 Mg Tablet 6 Tab PO QM Folic Acid 1 Mg Tablet 1 Tab PO DAILY Levothyroxine Sodium 88 Mcg Tablet 1 Tab PO DAILY Zoloft (Sertraline Hcl) 25 Mg Tablet 0.5 Tab PO DAILY Accuneb (Albuterol Sulfate) 0.63 Mg/3 Ml Vial.neb 0.63 Mg IH QHS Allergies Allergies: Coded Allergies: No Known Drug Allergies (Unverified , 12/19/17) ROS Review of System Review of Systems Review of Systems Constitutional: Denies fever or chills Eyes: Denies change in visual acuity HENT: Denies nasal congestion Respiratory: Denies cough or shortness of breath Cardiovascular: No additional information not addressed in HPI GI: Denies abdominal pain, nausea : Denies dysuria Musculoskeletal: Denies back pain Integument: Denies rash or skin lesions Neurologic: Denies headache 14 pt systems were reviewed and found to be within normal limits, except as documented . PSYCHOLOGICAL ROS: No: Anxiety, Behavioral Disorder, Concentration difficultie , Decreased libido, Depression, Disorientation, Hallucinations, Hostility, Irritablity, Memory difficulties, Mood Swings, Obsessive thoughts, Physical abuse, Sexual abuse, Sleep disturbances, Suicidal ideation, Other ALLERGY AND IMMUNOLOGY: No: Hives, Insect Bite Sensitivity, Itchy/Watery Eyes, Nasal Congestion, Post Nasal Drip, Seasonal Allergies, Other Breast: No New/Changing Breast Lumps, No Nipple changes, No Nipple discharge, No Other Cardiovascular: yes Palpitations Musculoskeletal: Yes Joint Stiffness Neurological: Yes Dizziness Skin: No Dry Skin, No Eczema, No Hair Changes, No Lumps, No Mole Changes, No Mottling, No Nail Changes, No Pruritus, No Rash, No Skin Lesion Changes, No Other, No Acne Physical Exam Physical Exam Physical Exam Physical Exam Constitutional: Well developed, well nourished, no acute distress, non-toxic appearance HENT: Normocephalic, atraumatic, bilateral external ears normal, oropharynx moist Eyes: PERRLA, EOMI, conjunctiva normal Neck: Normal range of motion, no tenderness Cardiovascular:Heart rate regular rhythm, no murmur Lungs & Thorax: Bilateral breath sounds clear to auscultation Abdomen: Bowel sounds normal, soft, NTTP Skin: Warm, dry, no erythema Extremities: No edema Neurologic: Alert and oriented X 3 Psychologic: Affect normal General: Cooperative, mild distress HEENT: Atraumatic, PERRLA, EOMI, Mucous membr. moist/pink Lungs: Clear to auscultation, Normal air movement Heart: RRR, no gallops Breasts: Not examined Abdomen: Normal bowel sounds, Soft Rectal Exam: not examined PELVIC: Examination not indicated Neuro: Normal speech, Strength at 5/5 X4 ext, Sensation intact, Cranial nerves 3-12 NL Psych/Mental Status: Mental status NL, Mood NL Vitals Vitals Vital Signs Date Time Temp Pulse Resp B/P (MAP) Pulse Ox O2 Delivery O2 Flow Rate FiO2 05/06/18 12:32 98.3 94 16 113/54 (73) 95 Room Air 98.3 Labs Labs Laboratory Tests Test 05/06/18 13:17 White Blood Count 8.2 x10^3/uL (4.0-11.0) Red Blood Count 3.29 x10^6/uL (3.50-5.40) Hemoglobin 10.9 g/dL (12.0-15.5) Hematocrit 31.6 % (36.0-47.0) Mean Corpuscular Volume 96 fL (79-100) Mean Corpuscular Hemoglobin 33 pg (25-35) Mean Corpuscular Hemoglobin Concent 35 g/dL (31-37) Red Cell Distribution Width 15.9 % (11.5-14.5) Platelet Count 222 x10^3/uL (140-400) Neutrophils (%) (Auto) 76 % (31-73) Lymphocytes (%) (Auto) 14 % (24-48) Monocytes (%) (Auto) 7 % (0-9) Eosinophils (%) (Auto) 3 % (0-3) Basophils (%) (Auto) 1 % (0-3) Neutrophils # (Auto) 6.2 x10^3uL (1.8-7.7) Lymphocytes # (Auto) 1.1 x10^3/uL (1.0-4.8) Monocytes # (Auto) 0.6 x10^3/uL (0.0-1.1) Eosinophils # (Auto) 0.3 x10^3/uL (0.0-0.7) Basophils # (Auto) 0.1 x10^3/uL (0.0-0.2) Prothrombin Time 13.4 SEC (11.7-14.0) Prothromb Time International Ratio 1.1 (0.8-1.1) Activated Partial Thromboplast Time 25 SEC (24-38) Sodium Level 140 mmol/L (136-145) Potassium Level 4.6 mmol/L (3.5-5.1) Chloride Level 105 mmol/L (98-107) Carbon Dioxide Level 26 mmol/L (21-32) Anion Gap 9 (6-14) Blood Urea Nitrogen 24 mg/dL (7-20) Creatinine 1.2 mg/dL (0.6-1.0) Estimated GFR (Cockcroft-Gault) 42.6 Glucose Level 117 mg/dL (70-99) Calcium Level 8.8 mg/dL (8.5-10.1) Laboratory Tests Test 05/06/18 13:17 White Blood Count 8.2 x10^3/uL (4.0-11.0) Red Blood Count 3.29 x10^6/uL (3.50-5.40) Hemoglobin 10.9 g/dL (12.0-15.5) Hematocrit 31.6 % (36.0-47.0) Mean Corpuscular Volume 96 fL (79-100) Mean Corpuscular Hemoglobin 33 pg (25-35) Mean Corpuscular Hemoglobin Concent 35 g/dL (31-37) Red Cell Distribution Width 15.9 % (11.5-14.5) Platelet Count 222 x10^3/uL (140-400) Neutrophils (%) (Auto) 76 % (31-73) Lymphocytes (%) (Auto) 14 % (24-48) Monocytes (%) (Auto) 7 % (0-9) Eosinophils (%) (Auto) 3 % (0-3) Basophils (%) (Auto) 1 % (0-3) Neutrophils # (Auto) 6.2 x10^3uL (1.8-7.7) Lymphocytes # (Auto) 1.1 x10^3/uL (1.0-4.8) Monocytes # (Auto) 0.6 x10^3/uL (0.0-1.1) Eosinophils # (Auto) 0.3 x10^3/uL (0.0-0.7) Basophils # (Auto) 0.1 x10^3/uL (0.0-0.2) Prothrombin Time 13.4 SEC (11.7-14.0) Prothromb Time International Ratio 1.1 (0.8-1.1) Activated Partial Thromboplast Time 25 SEC (24-38) Sodium Level 140 mmol/L (136-145) Potassium Level 4.6 mmol/L (3.5-5.1) Chloride Level 105 mmol/L (98-107) Carbon Dioxide Level 26 mmol/L (21-32) Anion Gap 9 (6-14) Blood Urea Nitrogen 24 mg/dL (7-20) Creatinine 1.2 mg/dL (0.6-1.0) Estimated GFR (Cockcroft-Gault) 42.6 Glucose Level 117 mg/dL (70-99) Calcium Level 8.8 mg/dL (8.5-10.1) VTE Prophylaxis Ordered VTE Prophylaxis Devices: No VTE Pharmacological Prophylaxi: Yes Assessment/Plan Assessment/Plan impression 1. svt vs p a-fib 2. hx HTN 3. COPD HX remote tobacco abuse 4. GERD HX 5. HX ANXIETY 6. HX PVD 7. HX CAD plan admit cvc cardiology consult CONSIDER ECHO t4 PAST MEDICAL HISTORY Past Medical History Cardiovascular: HTN, PVC, CAD, PAD Pulmonary: COPD CENTRAL NERVOUS SYSTEM: Other (no pertinent hx ) GI: GERD, GI bleed Heme/Onc: Cancer (colon ) Hepatobiliary: No pertinent hx Psych: Anxiety Musculoskeletal: Osteoarthritis Infectious disease: No pertinent hx ENT: No pertinent hx Renal/: No pertinent hx Endocrine: No pertinent hx, Hypothyroidism, Osteoporosis Dermatology: No pertinent hx PAST SURGICAL HISTORY Past Surgical History Cholecystectomy, Cataract Removal, Hernia Repair, Hysterectomy, Colon Resection , Other (bladder tuck), RLE multivessel endarterectomy, Right groin seroma removal, PCI/tent with impella assistance, SMA stent FAMILY HISTORY Family History noncontributory SOCIAL HISTORY Social History Smoke: past smoker ALCOHOL: none Drugs: None NAKIA FALCON MD May 06, 2018 13:47
[2018-05-06 13:48] LABS: BILIRUBIN,URINE NEGATIVE (NEG); CLARITY,URINE CLEAR; COLOR,URINE YELLOW; NITRITE,URINE NEGATIVE (NEG); PROTEIN,URINE NEGATIVE (NEG-TRACE); UROBILINOGEN,URINE 0.2 mg/dL (0.2 mg/dL)
[2018-05-06 14:10] LABS: HYALINE CASTS, URINE MODERATE /HPF
[2018-05-06 14:11] LABS: SQUAMOUS EPITHELIAL CELL,UR FEW /LPF
[2018-05-06 14:12] LABS: BACTERIA,URINE 0 /HPF (0-FEW); WBC,URINE OCC /HPF (0-4)
[2018-05-06] MEDS ORDERED: ACETAMINOPHEN 325 MG TABLET. PO PRN (14:30)
--- NOTE | 2018-05-06 14:53 | PDOC2 ---
JONA HERRERA EQUIPMENT MAINTENANCE ENGINEER 05/06/18 1453: CARDIAC CONSULT DATE OF CONSULT Date of Consult DATE: 05/06/18 TIME: 14:41 REASON FOR CONSULT Reason for Consult: Tachycardia REFERRING PHYSICIAN Referring Physician: Martinez SOURCE Source: Chart review, Patient HISTORY OF PRESENT ILLNESS HISTORY OF PRESENT ILLNESS This is a pleasant 87 yo female admitted for complains of lightheadedness and fast heart rate. Reports that she has been doing well, just recently got done with rehab, not needing supplemental O2 anymore. Her right leg still aches but controlled mainly with cramps at times otherwsie has been tolerating increased activity. Denies any chest pain. No exertional CP nor PEÑA. Reports that today she felt funny and was lightheaded and was feeling like she was going to pass out. She has an O2 sat monitor and noted that her HR was in the 150s. Also felt palpiations and sweaty at that time. No nausea or vomiting but felt like she was going to burp. She took some baking sodda she belched and her symptosm were gone. Her symptoms lasted about 10 minutes and byt the time EMS came she was better She lives in the main floor and her son and daughter in law lives upstairs so she is not alone. No recent falls, no hx of any significant arrhythmias. in the past. PAST MEDICAL HISTORY Past Medical History Cardiovascular: HTN, PVC, CAD, PAD Pulmonary: COPD CENTRAL NERVOUS SYSTEM: Other (no pertinent hx ) GI: GERD, GI bleed Heme/Onc: Cancer (colon ) Hepatobiliary: No pertinent hx Psych: Anxiety Musculoskeletal: Osteoarthritis Infectious disease: No pertinent hx ENT: No pertinent hx Renal/: No pertinent hx Endocrine: No pertinent hx, Hypothyroidism, Osteoporosis Dermatology: No pertinent hx PAST SURGICAL HISTORY Past Surgical History Cholecystectomy, Cataract Removal, Hernia Repair, Hysterectomy, Colon Resection , Other (bladder tuck), RLE multivessel endarterectomy, Right groin seroma removal, PCI/tent with impella assistance, SMA stent FAMILY HISTORY Family History noncontributory SOCIAL HISTORY Social History Smoke: past smoker ALCOHOL: none Drugs: None Lives: Alone ALLERGIES ALLERGIES: Coded Allergies: No Known Drug Allergies (Unverified , 12/19/17) ROS Review of System 14 point ROS evaluated with pertinent positives noted per HPI PHYSICAL EXAM General: Alert, Oriented X3, Cooperative, No acute distress HEENT: Mucous membr. moist/pink Lungs: Clear to auscultation, Normal air movement Heart: Regular rate (SR), Normal S1, Normal S2, Other (3/6 systolic murmur to LLs border) Abdomen: No tenderness Extremities: No cyanosis, Other (1-2+ bilateral LE pitting edema) Skin: No breakdown, No significant lesion Neuro: Normal speech, Sensation intact Psych/Mental Status: Mental status NL, Mood NL MUSCULOSKELETAL: Osteoarthritic changes both hands VITALS VITALS Vital Signs Date Time Temp Pulse Resp B/P (MAP) Pulse Ox O2 Delivery O2 Flow Rate FiO2 05/06/18 12:32 98.3 94 16 113/54 (73) 95 Room Air 98.3 LABS Lab: Laboratory Tests Test 05/06/18 13:17 05/06/18 13:36 White Blood Count 8.2 x10^3/uL (4.0-11.0) Red Blood Count 3.29 x10^6/uL (3.50-5.40) Hemoglobin 10.9 g/dL (12.0-15.5) Hematocrit 31.6 % (36.0-47.0) Mean Corpuscular Volume 96 fL (79-100) Mean Corpuscular Hemoglobin 33 pg (25-35) Mean Corpuscular Hemoglobin Concent 35 g/dL (31-37) Red Cell Distribution Width 15.9 % (11.5-14.5) Platelet Count 222 x10^3/uL (140-400) Neutrophils (%) (Auto) 76 % (31-73) Lymphocytes (%) (Auto) 14 % (24-48) Monocytes (%) (Auto) 7 % (0-9) Eosinophils (%) (Auto) 3 % (0-3) Basophils (%) (Auto) 1 % (0-3) Neutrophils # (Auto) 6.2 x10^3uL (1.8-7.7) Lymphocytes # (Auto) 1.1 x10^3/uL (1.0-4.8) Monocytes # (Auto) 0.6 x10^3/uL (0.0-1.1) Eosinophils # (Auto) 0.3 x10^3/uL (0.0-0.7) Basophils # (Auto) 0.1 x10^3/uL (0.0-0.2) Prothrombin Time 13.4 SEC (11.7-14.0) Prothromb Time International Ratio 1.1 (0.8-1.1) Activated Partial Thromboplast Time 25 SEC (24-38) Sodium Level 140 mmol/L (136-145) Potassium Level 4.6 mmol/L (3.5-5.1) Chloride Level 105 mmol/L (98-107) Carbon Dioxide Level 26 mmol/L (21-32) Anion Gap 9 (6-14) Blood Urea Nitrogen 24 mg/dL (7-20) Creatinine 1.2 mg/dL (0.6-1.0) Estimated GFR (Cockcroft-Gault) 42.6 Glucose Level 117 mg/dL (70-99) Calcium Level 8.8 mg/dL (8.5-10.1) Magnesium Level 2.0 mg/dL (1.8-2.4) Troponin I Quantitative < 0.017 ng/mL (0.000-0.055) ZP-Zpc-Z-Type Natriuretic Peptide 750 pg/mL (0-449) Thyroid Stimulating Hormone (TSH) 0.788 uIU/mL (0.358-3.74) Urine Collection Type Unknown Urine Color Yellow Urine Clarity Clear Urine pH 6.0 Urine Specific [place] 1.010 Urine Protein Negative mg/dL (NEG-TRACE) Urine Glucose (UA) Negative mg/dL (NEG) Urine Ketones (Stick) Negative mg/dL (NEG) Urine Blood Negative (NEG) Urine Nitrite Negative (NEG) Urine Bilirubin Negative (NEG) Urine Urobilinogen Dipstick 0.2 mg/dL (0.2 mg/dL) Urine Leukocyte Esterase Negative (NEG) Urine RBC 1-2 /HPF (0-2) Urine WBC Occ /HPF (0-4) Urine Squamous Epithelial Cells Few /LPF Urine Bacteria 0 /HPF (0-FEW) Urine Hyaline Casts Moderate /HPF Urine Mucus Slight /LPF ECHOCARDIOGRAM ECHOCARDIOGRAM <Conclusion> The left ventricle is normal size. The left ventricular systolic function is normal. The ejection fraction is 60-65%. There is no significant aortic valvular stenosis. Doppler and Color Flow revealed no significant aortic regurgitation. Doppler and Color Flow revealed trace mitral valve regurgitation. Doppler and Color Flow revealed mild to moderate tricuspid regurgitation. The PA pressure was estimated at 46 mmHg. There is a trace to mild loculated anterior pericardial effusion with no hemodynamic significance. DATE: 08/02/17 1223 HEART CATH HEART CATH Conclusion Successful complex and high risk multivessel PCI/drug eluting stents placement to the left main coronary artery, left anterior descending artery and also the left circumflex artery with hemodynamic support from Impella percutaneous ventricular assist device. Recommendations 1. Aspirin 325 mg daily 2. Plavix 75 mg daily for preferably one year 3. Cardiovascular risk factor modification DATE: 08/08/17 1611 ASSESSMENT/PLAN ASSESSMENT/PLAN 1. Palpitations/presyncope: possible PSVT lasting about 10 minutes resolved after burping. 2. CAD: S/P complex PCI/DESto LM/LAD/LCx with impella. 08/08/2017, clinically stable 3. PAD: S/P RLE endarterectomy, clinically stable. 4. COPD: stable 5. HTN: controlled 6. 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 Hx of GI bleed and SMA stent: Hgb stable, no active issues. 8. JOHN: poor volume support vs effects of RA med. Recommendations 1. Continue with secondary prevention. Continue 81 mg ASA and plavix. 2. Will monitor rhythm overnight. IV lopressor PRN. If BB is warranted, pending BP trend then may decrease or stop either norvasc or lisinopril. 3. IVF 4. will consider for outpt event monitor KEN WILKS MD 05/07/18 0955: CARDIAC CONSULT ASSESSMENT/PLAN ASSESSMENT/PLAN Patient seen and examined 05/06/18. Agree with DIRECTOR OF DIAGNOSTIC IMAGING's assessment and plan. Telemetry did not show any significant arrhythmias so far Agree with event monitor as an outpatient CAD and PAD status clinically stable Continue current medical regimen Thank you for your consultation JONA HERRERA APRN May 06, 2018 14:53 KEN WILKS MD May 07, 2018 09:55
[2018-05-06 15:00] VITALS: BP 135/51
[2018-05-06] MEDS ORDERED: METOPROLOL TARTRATE 5 MG/5 ML VIAL. IVP PRN (15:30)
[2018-05-06] MEDS ORDERED: IV NORMAL SALINE 1000ML BAG 1,000 ML IV ONE (15:30)
[2018-05-06] MEDS ORDERED: FURO-69 PO (17:53)
[2018-05-06] MEDS ORDERED: ALBUTEROL SULFATE 2.5 MG/3 ML NEBU. NEB PRN (18:00)
[2018-05-06] MEDS ORDERED: NITROGLYCERIN SUBLINGUAL 0.4 MG BOTTLE OF 25. SL PRN (18:00)
[2018-05-06] MEDS: FOLIC ACID 1 MG TABLET. PO SCH (18:22)
[2018-05-06] MEDS: SERTRALINE 25 MG TABLET. PO SCH (18:23)
[2018-05-06] MEDS: FUROSEMIDE 20 MG TABLET PO SCH (18:23)
[2018-05-06] MEDS: PANTOPRAZOLE 40 MG TABLET.DR. PO SCH (18:23)
[2018-05-06] MEDS: LEVOTHYROXINE 88 MCG TABLET PO SCH (18:23)
[2018-05-06] MEDS ORDERED: HYDR-2759 PO (18:43)
[2018-05-06 19:24] VITALS: BP 100/42
[2018-05-06] MEDS: ALPRAZolam 0.25 MG TABLET PO PRN (20:43)
[2018-05-06] MEDS: HYDROcodone/APAP 5/325MG 1 TAB TABLET PO PRN (20:43)
[2018-05-06] MEDS ORDERED: ATORVASTATIN CALCIUM 10 MG TABLET. PO SCH (21:00)
[2018-05-06] MEDS ORDERED: MONTELUKAST SODIUM 10 MG TABLET. PO SCH (21:00)
[2018-05-06] MEDS ORDERED: ALBUTEROL SULFATE 2.5 MG/3 ML NEBU. NEB SCH (21:00)
[2018-05-06 23:51] VITALS: BP 104/43
[2018-05-07 03:44] VITALS: BP 133/53
[2018-05-07 06:57] LABS: BASO # 0.1 x10^3/uL (0.0-0.2); BASO % 1 % (0-3); EOS # 0.4 x10^3/uL (0.0-0.7); EOS % 7 % (0-3); HEMATOCRIT 28.1 % (36.0-47.0); HEMOGLOBIN 9.6 g/dL (12.0-15.5); LYMPH # 1.4 x10^3/uL (1.0-4.8); LYMPH % 22 % (24-48); MEAN CORPUSCULAR HEMOGLOBIN 33 pg (25-35); MEAN CORPUSCULAR HGB CONC 34 g/dL (31-37); MEAN CORPUSCULAR VOLUME 96 fL (79-100); MONO # 0.6 x10^3/uL (0.0-1.1); MONO % 9 % (0-9); NEUT # 3.8 x10^3uL (1.8-7.7); NEUT % 61 % (31-73); PLATELET COUNT 218 x10^3/uL (140-400); RED BLOOD COUNT 2.92 x10^6/uL (3.50-5.40); RED CELL DISTRIBUTION WIDTH 15.8 % (11.5-14.5); WHITE BLOOD COUNT 6.3 x10^3/uL (4.0-11.0)
[2018-05-07 07:00] VITALS: BP 139/50
[2018-05-07 07:27] LABS: GFR 52.6; POTASSIUM 4.2 mmol/L (3.5-5.1)
[2018-05-07] MEDS ORDERED: ASPIRIN ENTERIC COATED 81 MG TABLET.DR. PO SCH (08:00)
[2018-05-07] MEDS ORDERED: CLOPIDOGREL BISULFATE 75 MG TABLET PO SCH (08:00)
[2018-05-07] MEDS: FOLIC ACID 1 MG TABLET. PO SCH (08:26)
[2018-05-07] MEDS: LEVOTHYROXINE 88 MCG TABLET PO SCH (08:27)
[2018-05-07] MEDS: SERTRALINE 25 MG TABLET. PO SCH (08:27)
[2018-05-07] MEDS: FUROSEMIDE 20 MG TABLET PO SCH (08:29)
[2018-05-07] MEDS: PANTOPRAZOLE 40 MG TABLET.DR. PO SCH (08:29)
[2018-05-07] MEDS: HYDROcodone/APAP 5/325MG 1 TAB TABLET PO PRN ×2 (08:33→12:17)
[2018-05-07] MEDS ORDERED: amLODIPine BESYLATE 5 MG TABLET PO SCH (09:00)
[2018-05-07] MEDS ORDERED: ASPIRIN 325 MG TABLET PO SCH (09:00)
[2018-05-07 11:10] VITALS: BP 125/50
[2018-05-07] MEDS: ALPRAZolam 0.25 MG TABLET PO PRN (12:17)
--- NOTE | 2018-05-07 13:17 | DISCH ---
DISCHARGE WITH HOME HEALTH DISCHARGE INFORMATION: Condition on Discharge: Stable CODE STATUS: Code Status: Full HOME HEALTH: Face to Face: I certify this patient is under my care and that I, or a nurse practitioner or physician's phlebotomy lab assistant working with me, had a face to face encounter that meets the physician face to face encounter requirements with this patient on []. Medical Complications: Falls Physical Therapy For: Evalulation/Treatment Occupational Therapy For: Evaluation/Treatment Home Health Aide For: Self-care OIL HEAT TECHNICIAN For: Community Resources POST DISCHARGE ORDERS: Activity Instructions for Disc: Activity as tolerated Weight Bearing Status after Di: As tolerated Bathing Instructions: No Tub Bath until see Wound/Incision Care: Other, see below CHECKS AFTER DISCHARGE: Checks after discharge: Check blood press - daily, Weigh Yourself Daily TREATMENT/EQUIPMENT ORDERS: Adaptive Equipment Issued: None Discharge Respiratory Equipmen: Oxygen CERTIFICATION STATEMENT: Certification Statement: Certification Statement: Based on the above finding, I certify that this patient is confined to the home and needs intermittent halfway care, physical therapy and/or speech therapy, or continues to need occupational therapy.~ This patient is under my care, and I have initiated the establishment of the plan of care.~ This patient will be followed by myself or a community physician who will periodically review the plan of care. Home Meds Active Scripts [Pantoprazole] 40 MG TABLET.DR Chavira Conflict Check, 40 MG PO DAILYAC for 90 Days Prov:CASTLE,NIAL K III DO 08/12/17 Montelukast Sodium (MONTELUKAST SODIUM TABLET) 10 Mg Tablet, 10 MG PO QHS for 90 Days, #90 TAB Prov:ANALILE,NIAL K III DO 08/12/17 Amlodipine Besylate (AMLODIPINE BESYLATE) 5 Mg Tablet, 5 MG PO DAILY for 90 Days , #90 TAB Prov:CASTLE,NIAL K III DO 08/12/17 Nitroglycerin (NITROSTAT) 0.4 Mg Tab.subl, 0.4 MG SL PRN Q5MIN PRN for CHEST PAIN for 90 Days, TAB Prov:CASTLE,NIAL K III DO 08/12/17 Atorvastatin Calcium (ATORVASTATIN CALCIUM) 10 Mg Tablet, 20 MG PO QHS for 90 Days, #180 TAB Prov:CASTLE,NIAL K III DO 08/12/17 Clopidogrel Bisulfate (CLOPIDOGREL) 75 Mg Tablet, 75 MG PO DAILYWBKFT for 90 Days, #90 TAB Prov:DI YANEZ III DO 08/12/17 Lisinopril (LISINOPRIL) 5 Mg Tablet, 5 MG PO DAILY for 90 Days, #90 MG Prov:DI YANEZ III DO 08/12/17 Reported Medications Hydrocodone/Acetaminophen (Hydrocodone-Acetamin 5-325 mg) 1 Each Tablet, 1 EACH PO PRN Q4HRS PRN for PAIN, TAB 05/06/18 Furosemide (LASIX) 20 Mg Tablet, 1 TAB PO DAILY for chf, #90 TAB 1 Refill 05/06/18 Albuterol Sulfate (ALBUTEROL SULFATE NEB SOLN) 2.5 Mg/3 Ml Vial.neb, 1 VIAL NEB PRN QID PRN for SHORTNESS OF BREATH, #50 VIAL 09/11/17 Multivitamin (CHEWABLE-DELROY) 1 Each Tab.chew, 1 EACH PO, TAB.CHEW 09/11/17 Aspirin (ASPIRIN) 325 Mg Tablet, 1 TAB PO DAILY, #30 TAB 5 Refills 08/12/17 [ensure] No Conflict Check 08/01/17 Alprazolam (XANAX) 0.25 Mg Tablet, 0.25 MG PO PRN Q12HR PRN for ANXIETY / AGITATION, TAB 0 Refills 11/14/15 Methotrexate Sodium (METHOTREXATE) 2.5 Mg Tablet, 6 TAB PO QM, #24 TAB 1 Refill 01/03/15 Folic Acid (FOLIC ACID) 1 Mg Tablet, 1 TAB PO DAILY, #90 TAB 1 Refill 01/03/15 Levothyroxine Sodium (LEVOTHYROXINE SODIUM) 88 Mcg Tablet, 1 TAB PO DAILY, #30 TAB 5 Refills 01/03/15 Sertraline Hcl (ZOLOFT) 25 Mg Tablet, 0.5 TAB PO DAILY, #30 TAB 2 Refills 01/03/15 Albuterol Sulfate (ACCUNEB) 0.63 Mg/3 Ml Vial.neb, 0.63 MG IH QHS 04/27/13 DI YANEZ III DO May 07, 2018 13:17
--- NOTE | 2018-05-07 13:35 | PDOC ---
JONA HERRERA RESEARCH PHYSICIST 05/07/18 1335: CARDIO Progress Notes Date and Time Date of Service 05/07/2018 Time of Evaluation 1310 Subjective Subjective: No Chest Pain, No shortness of breath, No Palpitations Vitals Vitals Vital Signs Date Time Temp Pulse Resp B/P (MAP) Pulse Ox O2 Delivery O2 Flow Rate FiO2 05/07/18 13:18 95 Room Air 05/07/18 11:10 98.2 81 18 125/50 (75) 98.2 Weight Weight [ ] Input and Output Intake and Output Intake and Output 05/07/18 07:00 Intake Total 600 ml Balance 600 ml Intake Oral 600 ml # Voids 2 # Bowel Movements 1 Laboratory Labs Laboratory Tests Test 05/06/18 13:36 05/06/18 17:25 05/06/18 20:30 05/07/18 06:00 Urine Collection Type Unknown Urine Color Yellow Urine Clarity Clear Urine pH 6.0 Urine Specific [place] 1.010 Urine Protein Negative mg/dL (NEG-TRACE) Urine Glucose (UA) Negative mg/dL (NEG) Urine Ketones (Stick) Negative mg/dL (NEG) Urine Blood Negative (NEG) Urine Nitrite Negative (NEG) Urine Bilirubin Negative (NEG) Urine Urobilinogen Dipstick 0.2 mg/dL (0.2 mg/dL) Urine Leukocyte Esterase Negative (NEG) Urine RBC 1-2 /HPF (0-2) Urine WBC Occ /HPF (0-4) Urine Squamous Epithelial Cells Few /LPF Urine Bacteria 0 /HPF (0-FEW) Urine Hyaline Casts Moderate /HPF Urine Mucus Slight /LPF Troponin I Quantitative < 0.017 ng/mL (0.000-0.055) 0.017 ng/mL (0.000-0.055) Free Thyroxine 0.95 ng/dL (0.76-1.46) White Blood Count 6.3 x10^3/uL (4.0-11.0) Red Blood Count 2.92 x10^6/uL (3.50-5.40) Hemoglobin 9.6 g/dL (12.0-15.5) Hematocrit 28.1 % (36.0-47.0) Mean Corpuscular Volume 96 fL (79-100) Mean Corpuscular Hemoglobin 33 pg (25-35) Mean Corpuscular Hemoglobin Concent 34 g/dL (31-37) Red Cell Distribution Width 15.8 % (11.5-14.5) Platelet Count 218 x10^3/uL (140-400) Neutrophils (%) (Auto) 61 % (31-73) Lymphocytes (%) (Auto) 22 % (24-48) Monocytes (%) (Auto) 9 % (0-9) Eosinophils (%) (Auto) 7 % (0-3) Basophils (%) (Auto) 1 % (0-3) Neutrophils # (Auto) 3.8 x10^3uL (1.8-7.7) Lymphocytes # (Auto) 1.4 x10^3/uL (1.0-4.8) Monocytes # (Auto) 0.6 x10^3/uL (0.0-1.1) Eosinophils # (Auto) 0.4 x10^3/uL (0.0-0.7) Basophils # (Auto) 0.1 x10^3/uL (0.0-0.2) Sodium Level 143 mmol/L (136-145) Potassium Level 4.2 mmol/L (3.5-5.1) Chloride Level 109 mmol/L (98-107) Carbon Dioxide Level 25 mmol/L (21-32) Anion Gap 9 (6-14) Blood Urea Nitrogen 19 mg/dL (7-20) Creatinine 1.0 mg/dL (0.6-1.0) Estimated GFR (Cockcroft-Gault) 52.6 Glucose Level 93 mg/dL (70-99) Calcium Level 9.0 mg/dL (8.5-10.1) Magnesium Level 2.0 mg/dL (1.8-2.4) Physical Exam HEENT: Neck Supple W Full Motion Chest: Symmetric LUNGS: Clear to Auscultation Heart: S1S2, RRR (SR no rhythm ectopies), no gallops Abdomen: Soft N/T Extremities: No Calf Tenderness Neurology: alert, oriented, follow commands Assessment Assessment 1. Palpitations/presyncope: possible PSVT lasting about 10 minutes resolved after burping. No recurrence. 2. CAD: S/P complex PCI/DESto LM/LAD/LCx with impella. 08/08/2017, clinically stable 3. PAD: S/P RLE endarterectomy, clinically stable. 4. COPD: stable 5. HTN: controlled 6. 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 Hx of GI bleed and SMA stent: Hgb stable, no active issues. 8. JOHN: poor volume support, resolved Recommendations 1. Continue with secondary prevention. Continue 81 mg ASA and plavix. 2. No rhythm ectopies overnight. Will arrange for outpt event monitor and follow up in office in 4 weeks. 3. Continue home BP regimen. KEN WILKS MD 05/07/18 2133: CARDIO Progress Notes Assessment Assessment Patient seen and examined. Agree with CHAIN SAW MECHANIC's assessment and plan. Tele did not show any significant arrhythmias CAD/PAD stable Plan event monitor as outpatient JONA HERRERA APRN May 07, 2018 13:35 KEN WILKS MD May 07, 2018 21:33
[2018-05-12] MEDS ORDERED: METHOTREXATE SODIUM 2.5 MG TABLET PO SCH (09:00)
--- NOTE | 2018-05-13 23:42 | DS ---
DATE OF DISCHARGE: 05/07/2018 ADMISSION DIAGNOSIS: Tachycardia. DISCHARGE DIAGNOSIS: Resolving tachycardia. HOSPITAL COURSE: The patient is a pleasant 87-year-old female presented with tachycardia and lightheadedness. She was admitted. We consulted Cardiology, did serial enzymes, serial EKGs and cardiac monitoring, physical therapy and occupational therapy. Over the next few days, she returned to baseline. We discharged home with close outpatient followup and home health. DISPOSITION: Home with home health. ACTIVITY: As tolerated. DIET: Low sodium. MEDICATIONS: Please see the MRAD. TOTAL TIME ON DISCHARGE: 33 minutes. RELLL Shazia YANEZ DO DR: MARJORIE/lisbet JOB#: [id number] / [id number]
== END 2018-05-07 14:47 | disposition home health service (06) ==
LOC: ER 12:29 → 2 SOUTH 14:15
PROVIDERS: ADMIT Family Medicine; ATTEND Family Medicine
DX: R00.0 Tachycardia, unspecified (principal); I25.10 Atherosclerotic heart disease of native coronary artery without angina pectoris; I73.9 Peripheral vascular disease, unspecified; I10 Essential (primary) hypertension; E78.5 Hyperlipidemia, unspecified; J44.9 Chronic obstructive pulmonary disease, unspecified; K21.9 Gastro-esophageal reflux disease without esophagitis; N17.9 Acute kidney failure, unspecified; D89.9 Disorder involving the immune mechanism, unspecified; E03.9 Hypothyroidism, unspecified; Z95.5 Presence of coronary angioplasty implant and graft; Z90.710 Acquired absence of both cervix and uterus; Z87.891 Personal history of nicotine dependence; Z85.038 Personal history of other malignant neoplasm of large intestine
CPT/HCPCS: 36415; 80048; 81001; 83735; 83880; 84439; 84443; 84484; 85025; 85610; 85730; 93005; 94640; 96360; 96361; 99284; G0378; G0379; J7030; J7613

== ENCOUNTER → 2019-02-19 | Outpatient (CLI) | payer MEDICARE, OTHER ==
[2019-02-01 11:00] VITALS: BP 121/58
[~2019-02-19] MED LIST changes: +AMLO5TAB10 PO; -AMLO5TAB7 PO; +HYDR-2759 PO; +METO25TA4 PO; +MONT10TA49 PO; -MONT10TA9 PO; -NITR0.4T SL; +NITR0.4T24 SL; +ONDANSETRON ODT 4 MG TAB.RAPDIS. PO ONE; +POTA20TA82 PO; +REGADENOSON 0.4 MG/5 ML DISP.SYRIN. IV ONE
--- NOTE | 2019-02-19 11:39 | RAD ---
MR#: [id number] Date of Study: 02/19/2019 Ordering Physician: KEN WILKS, Referring Physician: JESSICA GARCIA Tech: RT Charito Lawton) (N) APPROVED REPORT Test Type: Pharmacological Stress Nurse/Tech: Nale MARTE Test Indications: Chest Pain Cardiac History: HTN, PVD= 2 stents in each leg in 2018, See EMR. Medications: See EMR Medical History: COPD, X-Smoker quit 2 yrs ago, Chemotherapy in 1999, See EMR. Resting ECG: SR Resting Heart Rate: 58 bpm Resting Blood Pressure: 160/58mmHg Pretest Chest Pain: No chest pain Nurse/Tech Notes Lungs CTA, Heart tones regular. Consent: The procedure was explained to the patient in lay terms. Informed consent was witnessed. Devyn eout was entered into [employer]. History and Stress Test performed by RT Charito Lawton) (N) Pharm. Details Pharmacologic stress testing was performed using 0.4mg per 5ml of regadenoson given intravenously ove r 7-10 seconds. Stress Symptoms Nausea and vomiting. Patient denies any chest pain. Pt has ST changes starting in Stage 1 @ 01:00. S T depression in leads II, AVF, V5, V6 and ST elevation in lead AVR. The ST changes are the greatest in Stage R @ 04:[address] elevation and depression 1-1.5 boxes. POST EXERCISE Reason for Termination: Infusion complete Max HR: 126 bpm Max Blood Pressure: 153/66mmHg Blood Pressure response to exercise: Normal blood pressure response during stress. Chest Pain: No. Arrhythmia: Yes. Few PVCs. ST Change: Yes. See Stress symptoms. INTERPRETATION Stress EKG Conclusion: Baseline EKG showed sinus rhythm. ST depression and T wave inversions inferol ateral leads consistent with ischemia. No arrhythmias. Imaging Protocol IMAGE PROTOCOL: Rest Tc-99m/stress Tc-99m 1 day Rest: Stress: Viability: Radiopharm.Tc99m PhozaierqOc02m Sestamibi Dose10.1mCi 33mCi Duration 13min. 13min. Img Date 02/19/2019 02/19/2019 Inj-Img [id number]. 60min. Rest Admin Site:IV - Left AntecubitalAdministrator:Aliyah Last, RT (R)(N) Stress Admin Site: IV - Left AntecubitalAdministrator: UNA Salazar STRESS DATA End Diast. Vol.66.0mlLVEDV index BSA43.0ml End Syst. Vol.28.0mlLVESV index BSA18.0ml Myocardial Mass99.0gEject. Slraypar58.0% Stress Scores Regional WT1.00Summed WT5.00 Regional WM0.00Summed WM12.00 Study quality was good. Left Ventricular size was Normal at Rest and Stress. Lung uptake was . Left Ventricular ejection fraction is 58%. The rest and stress images show normal perfusion, normal contraction and thickening. LV Perf. Quant 17 Seg. SSS1.00 17 Seg. SRS0.00 17 Seg. SDS1.00 Stress Defect Extent (% LAD)0.00Rest Defect Extent (% LAD)0.00Rev. Defect Extent (% LAD)0.00 Stress Defect Extent (% LCX) 8.80Rest Defect Extent (% LCX)0.00Rev. Defect Extent (% LCX)7.50 Stress Defect Extent (% RCA)0.00Rest Defect Extent (% RCA)0.00Rev. Defect Extent (% RCA)0.00 Stress Defect Extent (% DANK)1.50Rest Defect Extent (% DANK)0.00Rev. Defect Extent (% DANK)1.30 Conclusion 1. Regadenoson cardioisotope stress test showed ischemic changes on EKG but scintigraphic images did not show any evidence of ischemia or infarct. 2. Normal left ventricular systolic function with ejection fraction calculated at 58%. 3. Consider cardiac cath if clinical suspicion for significant CAD is high. Signed by : Ken Wilks, Electronically Approved : 02/19/2019 11:39:04
== END | disposition home or self-care (01) ==
LOC: NM 15:56
PROVIDERS: ATTEND Internal Medicine Cardiovascular Disease
DX: R07.9 Chest pain, unspecified (principal); I10 Essential (primary) hypertension; J44.9 Chronic obstructive pulmonary disease, unspecified; F17.200 Nicotine dependence, unspecified, uncomplicated; I49.3 Ventricular premature depolarization
CPT/HCPCS: 78452; 93017; A9500; J2785; Q0162